=== PATIENT | female | born 1970 | race Caucasian/White ===

== ENCOUNTER 2017-07-18 06:31 | Day surgery (SDC) | payer OTHER ==
--- NOTE | 2017-07-12 12:59 | HP ---
AMENDED REPORT NOW INCLUDES COSIGNER DESIGNATION - ESIGNED BEFORE ADJUSTMENT PREOPERATIVE HISTORY AND PHYSICAL: DATE OF SURGERY/ADMISSION: 07/18/17 - OR EAST DATE OF OFFICE VISIT/ENCOUNTER: 07/06/17 ATTENDING SURGEON: Yris Estrada MD * (DICTATED BY JAVON DONOHUE) PROCEDURE: Right wrist ganglion cyst excision. CHIEF COMPLAINT: Right wrist ganglion cyst. HISTORY OF PRESENT ILLNESS: This is a 46-year-old female who complaints of lump on the volar radial aspect of her right wrist that has been present for 7 years. She does not recall any specific injury. It is gradually getting worse over time to the point where it is bothering her a lot. She denies any numbness or tingling associated with it. She would like to have the mass removed. PAST MEDICAL HISTORY: Unremarkable. PAST SURGICAL HISTORY: None. MEDICATIONS: 1. Calcium. 2. Evening primrose oil. 3. Multivitamin. 4. Red raspberry. ALLERGIES: 1. PENICILLIN, reaction unknown. 2. ROCEPHIN, causes hives. FAMILY MEDICAL HISTORY: Parkinson's and cardiac disease. 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 She denies tobacco use and recreational drug use. She does admit to alcohol use on occasions. REVIEW OF SYSTEMS: General: Negative for fevers, chills, or night sweats. No known anesthesia problems. HEENT: Negative for headache, lightheadedness, or syncopal episodes. Integumentary: Negative for abrasions, lesions, or open wounds. Cardiothoracic: Negative for hypertension, chest pain, palpitations, or edema. Pulmonary: Negative for shortness of breath with exertion, chronic cough, or COPD. GI: Negative for nausea, vomiting, diarrhea, constipation, or GERD. : Negative for nocturia, urinary frequency, urgency, history of UTIs, or kidney problems. Musculoskeletal: Positive for current complaint. Negative for chronic or intermittent back pain. No history of fractures. Neurologic: Negative for paresthesias, numbness, history of seizures, stroke, or epilepsy. Endocrine: Negative for diabetes or thyroid issues. Hematologic: Negative for easy bruising, anemia, excessive bleeding, or history of DVT. Infectious Disease: Negative for history of MRSA, hepatitis C, or HIV. PHYSICAL EXAMINATION GENERAL: Well developed, well nourished 46-year-old female in no acute distress. VITAL SIGNS: Height is 5 feet 1 inch, weight 129 pounds. Pulse rate 68, blood pressure 122/78. HEENT: Normocephalic, atraumatic. Pupils are equal, round, and reactive to light and accommodation. NECK: Supple. No palpable lymph nodes. Throat is clear. PULMONARY: Lungs are clear to auscultation bilaterally. No wheezes, rales, or rhonchi. CARDIOVASCULAR: Regular rate and rhythm. S1 and S2. No murmurs, rubs, or gallops. No edema. ABDOMEN: Positive bowel sounds, soft, nontender. NEUROLOGIC: Alert and oriented x3. Cranial nerves II through XII are intact. Sensation is intact to light touch. MUSCULOSKELETAL: On exam of the right wrist, there is a lump on the volar radial aspect of the wrist, approximately 1 cm in diameter. It is tender to palpation. It affects her motion in flexion and extension where she has pain at the extremes. She can fully flex and extend her fingers and neurovascular function is intact. SKIN: Intact. IMAGING STUDIES: AP, lateral, and oblique x-rays of the right wrist appear normal. ASSESSMENT: Right volar radial ganglion cyst. PLAN: The patient is scheduled to undergo a right wrist ganglion cyst excision with Dr. Estrada on 07/18/17. She will return to the office in 10 to 14 days postop for followup and suture removal. A prescription for Ultracet was e- scribed to the patient's pharmacy for postoperative pain management. JAVON DONOHUE [id number]/[facility] #: [id number] RANJAN
[~2017-07-18 06:31] MED LIST: Buffered Lidocaine 0.9% SYRIN* 5 ML/SYR SYRINGE INTRADERM ONE
[2017-07-18] MEDS ORDERED: Lidocaine 1% INJ* 10 MG/ML 30 ML SDV ONE (07:18)
[2017-07-18] MEDS ORDERED: Midazolam* 1 MG/ML 2 ML VIAL (2 MG) ONE (07:37)
[2017-07-18] MEDS ORDERED: fentaNYL* 50 MCG/ML 2 ML VIAL (100 MCG VIAL) ONE (07:37)
[2017-07-18] MEDS ORDERED: Propofol* 10 MG/ML 20 ML BTL IV PUSH ONE (08:25)
[2017-07-18 08:50] VITALS: BP 126/75
--- NOTE | 2017-07-18 11:01 | OP ---
DATE OF OPERATION: 07/18/2017 [facility] DATE OF : 1970. SURGEON: Dr. Yris Estrada. FIREBRICK AND REFRACTORY TILE REPAIRER: JAVON Mancini. ANESTHESIOLOGIST: Ramiro Polanco MD ANESTHESIA: Local MAC. PRE-OP DIAGNOSIS: Right wrist ganglion. POST-OP DIAGNOSIS: Right wrist ganglion. OPERATIVE PROCEDURE: Remove right wrist ganglion. ESTIMATED BLOOD LOSS: Zero. TOURNIQUET TIME: About 10 minutes. INDICATION FOR PROCEDURE: Pamela is a 46-year-old female with a painful mass on the volar radial aspect of her right wrist. She presents for removal. Clinically it is a ganglion cyst. DESCRIPTION OF PROCEDURE: The patient was brought to the operating room and she was given a sedation anesthetic and then a local infiltrate of 10 cc of 1% plain Lidocaine overlying the right wrist mass. The skin of her right hand and forearm was prepped and draped in the usual sterile fashion. The hand and forearm were exsanguinated and the tourniquet elevated to 250 mmHg. A chevron incision was made centered over the mass. We dissected bluntly through the subcutaneous tissue. The radial artery was draped over the mass. It was carefully dissected off and retracted by the front office medical assistant, Brigid Braswell. The mass was then carefully dissected with its stalk down to the radial carpal joint. It was removed with a small portion of the radial carpal joint and then the edges of the capsule were cauterized with the Bovie. The wound was irrigated and skin edge was reapproximated with 4-0 nylon suture. The wound was dressed in Xeroform, 4x4, Webril and an Ayo wrap. The patient tolerated the procedure well and was brought to the recovery room in good condition. [id number]/[facility] #: [id number] [facility]
== END 2017-07-18 08:43 | disposition home or self-care (01) ==
LOC: OREAST 06:31
PROVIDERS: ATTEND Orthopaedic Surgery
DX: M67.431 Ganglion, right wrist (principal); Z88.1 Allergy status to other antibiotic agents; Z88.0 Allergy status to penicillin
CPT/HCPCS: 81025; 88304; J2001; J2250; J2704; J3010